=== PATIENT | male | born 1940 | race Caucasian/White ===

== ENCOUNTER 2022-11-28 12:59 | Emergency (ER) | payer MEDICARE ==
[~2022-11-28] VITALS: Ht 188 cm; Wt 72.6 kg
[2022-11-28 13:46] LABS: BASOPHILS % (AUTO) 0.2 % (0.0-5.0); EOSINOPHILS % (AUTO) 0.6 % (0.0-8.0); HEMATOCRIT 28.3 % (42-54); LYMPHOCYTES % (AUTO) 17.1 % (21.0-51.0); MEAN CORPUSCULAR HEMOGLOBIN 33.1 pg (27.0-33.0); MEAN CORPUSCULAR HGB CONC 32.9 g/dL (32.0-36.0); MEAN CORPUSCULAR VOLUME 100.7 fL (79-99); MONOCYTES % (AUTO) 9.1 % (3.0-13.0); NEUTROPHILS % (AUTO) 72.8 % (40.0-77.0); PLATELET COUNT (AUTO) 193 K/uL (130-400); RED BLOOD CELL COUNT(AUTO) 2.81 MIL/uL (4.50-6.20); RED CELL DISTRIBUTION WIDTH 13.1 % (11.0-15.5); WHITE BLOOD COUNT (AUTO) 5.2 K/uL (4.8-10.8)
[2022-11-28 14:00] LABS: CREATININE 1.2 mg/dL (0.5-1.5); POTASSIUM 4.8 mmol/L (3.5-5.1)
[2022-11-28 14:07] LABS: ALBUMIN 3.3 g/dL (3.5-5.0); TOTAL PROTEIN, SERUM 7.1 g/dL (6.0-8.3)
[2022-11-28 17:16] VITALS: BP 131/66
== END 2022-11-28 17:29 | disposition home or self-care (01) ==
LOC: EDH 12:59
DX: E11.649 Type 2 diabetes mellitus with hypoglycemia without coma (principal); I10 Essential (primary) hypertension; Z88.5 Allergy status to narcotic agent
CPT/HCPCS: 36415; 80053; 82948; 85025